=== PATIENT | female | born 1960 | race Caucasian/White ===

== ENCOUNTER 2024-08-03 11:15 | Outpatient (RCR) | payer BC, SELFPAY | END 2024-11-04 15:02 | disposition home or self-care (01) | PROVIDERS: PCP Family Medicine; Visit Provider Dentist | DX: M54.2 Cervicalgia (principal); H92.01 Otalgia, right ear; M26.623 Arthralgia of bilateral temporomandibular joint; M79.10 Myalgia, unspecified site; M77.8 Other enthesopathies, not elsewhere classified; Q38.1 Ankyloglossia; Z74.09 Other reduced mobility; Z51.89 Encounter for other specified aftercare | CPT/HCPCS: 97110; 97140; 97161; 97535 ==